=== PATIENT | male | born 1960 | race Caucasian/White ===

== ENCOUNTER 2017-10-16 07:22 | Day surgery (SDC) | payer OTHER ==
[~2017-10-16] VITALS: Ht 180.3 cm; Wt 127.0 kg
[~2017-10-16 07:22] MED LIST: KEFLEX500 MG PO
--- NOTE | 2017-10-16 09:15 | NUR ---
10/16/17 0915 Dl Cohen PT APPEARS AWAKE ON ENTRY TO PACU. ORIENTED TO TIME AND SITUATION. DENIES NAUSEA OR PAIN.
--- NOTE | 2017-10-26 14:11 | OR ---
[facility] [address] [place], [place] [address] Signed DATE OF OPERATION: 10/16/2017 SURGEON: Adwoa Blanca MD PREOPERATIVE DIAGNOSIS: Colon screening. POSTOPERATIVE DIAGNOSIS: Polyps x3. PROCEDURE: Total colonoscopy to cecum with snare polypectomy x2 and cold morcellation polypectomy x1. ANESTHESIA: Intravenous sedation, fentanyl 100 mcg, Versed 5 mg. INDICATION: This 56-year-old white man is a patient of Dr. Smith and is here for colon screening. He has no family history of colon cancer and he has had no symptoms of bleeding, diarrhea, or constipation. He understands well the risks of bleeding, infection, and perforation related to colonoscopy and wished to proceed. FINDINGS: The prep was adequate. Complete colonoscopy was undertaken to the cecum. The cecum had an inflammatory appearance minimally so and biopsies were obtained. There was no sign of polyp there. There were 2 polyps across from each other at 90 cm, one excised with cold morcellation technique and the other cold snare polypectomy technique. Another polyp was noted in the rectosigmoid and excised with hot snare polypectomy technique. The remaining colon was normal. DESCRIPTION OF PROCEDURE: The patient was brought to the endoscopy suite and placed in lateral decubitus position, given intravenous sedation to the point of slurred speech and nystagmus. Digital rectal examination was normal. An Olympus video colonoscope was passed in the rectum and manipulated throughout the colon, ultimately intubating the cecum itself. Irrigation in the cecum of some gelatinous-type stool showed some orange to red type material and was uncertain if this was blood. I saw no sign of mucosal lesion of the cecum itself. However, biopsies were Electronically Signed By: ADWOA BLANCA MD 10/26/17 1411 PATIENT NAME: AYAN PEARSON OPERATIVE REPORT DATE OF : 56 REPORT #: [id number] PHYSICIAN: ADWOA BLANCA MD PCP: LUIS DANIEL SMITH DO REPORT IS CONFIDENTIAL AND NOT TO BE RELEASED WITHOUT AUTHORIZATION [facility] [address] [place], [place] [address] Signed obtained on the possibilities represented a cecitis or even a flat polyp, however, unlikely that might be. The scope was then withdrawn from that point and careful examination was undertaken. Approximately 90 cm from the anal verge were 2 small sessile polyps, one was excised with cold morcellation technique, the larger with cold snare technique. Further withdrawal of the scope showed no abnormality until the rectosigmoid, where a small sessile polyp was noted. This was excised with hot snare polypectomy technique without problem. Withdrawal of scope further allowed retroflexed view of the rectum, which was normal. Scope was removed and the patient was taken to recovery room in good condition. CONCLUDING DIAGNOSIS: Three polyps, all excised. PLAN: Recommend repeat colonoscopy in 3 years sooner if symptoms should occur. We will check pathology. If hyperplastic polyps are the underlying histology, he can go longer before repeat of course. He will return to the ongoing care of Dr. Smith otherwise. MD DENISA Saucedo/JOCELYN /[id number] cc: Luis Daniel Smith DO Copies: LUIS DANIEL SMITH DO ~ Electronically Signed By: ADWOA BLANCA MD 10/26/17 1411 PAT[facility] NAME[facility] RE[facility] DATE OF : 56 REPORT #: [id number] PHYSICIAN: ADWOA BLANCA MD PCP: LUIS DANIEL SMITH DO REPORT IS CONFIDENTIAL AND NOT TO BE RELEASED WITHOUT AUTHORIZATION
== END 2017-10-16 09:50 | disposition home or self-care (01) ==
LOC: OPS 07:22 → DS 07:22 → OPS 08:30
PROVIDERS: Surgery
PROC: 0DBE8ZX Excision of Large Intestine, Via Natural or Artificial Opening Endoscopic, Diagnostic (ICD-10-PCS; 2017-10-16)
PROC: 0DBH8ZX Excision of Cecum, Via Natural or Artificial Opening Endoscopic, Diagnostic (ICD-10-PCS; principal; 2017-10-16 08:30)
DX: Z12.11 Encounter for screening for malignant neoplasm of colon (principal); D12.6 Benign neoplasm of colon, unspecified; K63.89 Other specified diseases of intestine; E66.01 Morbid (severe) obesity due to excess calories; Z98.84 Bariatric surgery status; Z68.39 Body mass index [BMI] 39.0-39.9, adult
CPT/HCPCS: 99153; G0500; J2250; J3010; J7120

== ENCOUNTER 2021-10-18 06:20 | Day surgery (SDC) | payer OTHER ==
[~2021-10-18] VITALS: Ht 180.3 cm; Wt 130.5 kg
[2021-10-18] MEDS ORDERED: FLOMAX0.4 MG PO (06:45)
[2021-10-18] MEDS ORDERED: MULTI VITAMIN1 EACH PO (06:46)
--- NOTE | 2021-10-18 08:23 | NUR ---
10/18/21 0823 Mi Galarza 0816- PT ARRIVES TO PACU ALERT AND ORIENTED. PT REPORTS NO PAIN OR NAUSEA. RESP EVEN AND UNLABORED. OXYGEN SAT HIGH 90'S TO 100% ON 3L VIA NC. 0823- OXYGEN TITRATED OFF.
--- NOTE | 2021-10-18 10:11 | NUR ---
PT ALERT, ORIENTED AND SEEMS RELAXED. PTS' SON WILL PICKUP FOLLOWING DC. PT HAS HAD PREVIOUS SCOPES-MANAGED PREP. ALL QUESTIONS ASKED ASWERED. BLESSING GIVEN, WILL FOLLOW NEEDED
--- NOTE | 2021-10-19 16:01 | PATH ---
[facility] [address] [place], [place] [address] Signed SPECIMEN(S): A FLAT COLON BIOPSY AT 35 CM MUCOSAL LESION SPECIMEN(S): B COLON POLYP AT 20 CM SPECIMEN(S): C COLON POLYP AT 15 CM SPECIMEN SOURCE: A. FLAT COLON BIOPSY AT 35 CM MUCOSAL LESION B. COLON POLYP AT 20 CM C. COLON POLYP AT 15 CM CLINICAL HISTORY: Colonoscopy. History of polyps. Postop: Small polyps. FINAL PATHOLOGIC DIAGNOSIS: A. Flat mucosal colon lesion at 35 cm, biopsies: - Early hyperplastic polyp. - Negative for dysplasia. B. Colon polyp at 20 cm, polypectomy: - Hyperplastic polyp. C. Colon polyp at 15 cm, polypectomy: - Hyperplastic polyp. DDF:em:C2NR MICROSCOPIC EXAMINATION: Histologic sections of all submitted blocks are examined by light microscopy. These findings, together with the gross examination, support the pathologic diagnosis. GROSS DESCRIPTION: Three specimens are received in three containers, labeled "RD." A. The specimen, labeled "RD, flat mucosal colon lesion biopsy at 35 cm," is received in formalin and consists of three solo soft tissue fragments that measure 0.1-0.2 cm in greatest dimension. The specimen is entirely submitted in cassette (A1). B. The specimen, labeled "RD, colon polyp at 20 cm," is received in formalin and consists of two solo soft tissue fragments that measure 0.1-0.2 cm in greatest dimension. The specimen is entirely submitted in cassette (B1). C. The specimen, labeled "RD, colon polyp at 15 cm," is received in formalin and consists of two solo soft tissue fragments that measure 0.2 cm in greatest dimension. The specimen is entirely submitted in cassette (C1). PATIENT NAME: AYAN PEARSON PATHOLOGY DATE OF : 56 REPORT #: [id number] PHYSICIAN: JOHNNY PATHOLOGY PCP: OCTAVIA SMITH DO REPORT IS CONFIDENTIAL AND NOT TO BE RELEASED WITHOUT AUTHORIZATION [facility] [address] [place], [place] [address], [place] [address] Signed JS (under the direct supervision of a pathologist) The Gross Description was prepared using a voice recognition system. The report was reviewed for accuracy; however, sound-alike word errors, addition and/or deletions may occur. If there is any question about this report, please contact Client Services. PERFORMING LABORATORY: The technical component was performed by [facility], [address] [place] [address] (Supervisor Forming Department: Joya Larry MD; CLIA# [id number]). Professional interpretation was performed by [facility], [address] [place] [address] (Supervisor Forming Department: Joya Larry MD; CLIA# [id number]). Diagnostician: Jamar Healy DO Pathologist Electronically Signed 10/19/2021 Copies: ~ PATIENT NAME: AYAN PEARSON PATHOLOGY DATE OF : 56 REPORT #: [id number] PHYSICIAN: JOHNNY ABDI PCP: OCTAVIA SMITH DO REPORT IS CONFIDENTIAL AND NOT TO BE RELEASED WITHOUT AUTHORIZATION
--- NOTE | 2021-10-19 18:19 | OR ---
[facility] [address] [place], [place] [address] Signed DATE OF OPERATION: 10/18/2021 SURGEON: Adwoa Blanca MD PREOPERATIVE DIAGNOSIS: History of tubular adenomas x3 2018. POSTOPERATIVE DIAGNOSIS: Small flat possibly hyperplastic polyps of rectosigmoid, sigmoid and left colon. PROCEDURE: Total colonoscopy to cecum with cold morcellation polypectomy x5. ANESTHESIA: Intravenous sedation; fentanyl 100 mcg and Versed 7 mg. INDICATION: This is a 60-year-old white man who is patient Dr. Luis Daniel Smith of [place], [place]. He has a history of polyps, having undergone colonoscopy by me in 2018. At that time, snare polypectomy of tubular adenomas was noted. The patient is currently asymptomatic, having no bleeding, diarrhea or constipation complaints. He is admitted to undergo surveillance colonoscopy. He understand the risks of bleeding, infection, and perforation. FINDINGS: The prep was good. Complete colonoscopy was undertaken to the cecum without question. He had several small flat type polyps, possibly hyperplastic, but possibly adenomatous. All were confined to the left side and rectosigmoid and five in total were excised. DESCRIPTION OF PROCEDURE: The patient was brought to the endoscopy suite and placed in the lateral decubitus position, given intravenous sedation to the point of slurred speech and nystagmus with full cardiopulmonary monitoring. Digital rectal examination was normal. An Olympus video colonoscope was passed in the rectum and manipulated throughout the colon ultimately intubating the cecum itself. The ileocecal valve and appendiceal orifice were well visualized and normal. The scope was carefully withdrawn from that point and irrigation was undertaken as necessary, showing no sign of abnormality until Electronically Signed By: ADWOA BLANCA MD 10/19/21 1819 PATIENT NAME: AYAN PEARSON OPERATIVE REPORT DATE OF : 56 REPORT #: [id number] PHYSICIAN: ADWOA BLANCA MD PCP: LUIS DANIEL SMITH DO REPORT IS CONFIDENTIAL AND NOT TO BE RELEASED WITHOUT AUTHORIZATION [facility] [address] [place], [place] [address] Signed approximately 40 cm from the anal verge. Here two small flat polypoid lesions were noted. Narrow band imaging confirmed these to be abnormal mucosa and although not worrisome. Both were excised with cold morcellation technique. The scope was withdrawn and other similar such lesion was noted at about 35 cm, it too was excised. Careful withdrawal showed two similar such lesions at about 20 cm, both were excised and final similar lesion at 15 cm also excised with cold morcellation technique. Retroflexed view of the rectum was normal. Scope was removed and the patient was taken to the recovery room in good condition. CONCLUDING DIAGNOSIS: Five small flat polyps, uncertain regarding adenomatous or hyperplastic histology. PLAN: Recommend repeat scope in 5 years, sooner if clinically indicated. He will return to the ongoing care of Dr. Smith. MD DENISA Saucedo/JOCELYN /[id number] cc: Lusi Daniel Smith DO Copies: LUIS DANIEL SMITH DO ~ Electronically Signed By: ADWOA BLANCA MD 10/19/21 1819 PATIENT NAME: AYAN PEARSON PROSPER OPERATIVE REPORT DATE OF : 56 REPORT #: [id number] PHYSICIAN: ADWOA BLANCA MD PCP: LUIS DANIEL SMITH DO REPORT IS CONFIDENTIAL AND NOT TO BE RELEASED WITHOUT AUTHORIZATION
== END 2021-10-18 08:45 | disposition home or self-care (01) ==
LOC: OPS 06:20 → DS 06:20 → OPS 07:30
PROVIDERS: ATTEND Surgery
PROC: 0DBE8ZZ Excision of Large Intestine, Via Natural or Artificial Opening Endoscopic (ICD-10-PCS; principal; 2021-10-18 07:30)
DX: K63.5 Polyp of colon (principal); Z86.010 Personal history of colon polyps; Z98.84 Bariatric surgery status
CPT/HCPCS: 99153; G0500; J0690; J2250; J3010; J7121

== ENCOUNTER 2024-03-08 08:21 | Emergency (ER) | payer MEDICARE, OTHER ==
[~2024-03-08 08:21] MED LIST changes: +FLOMAX0.4 MG PO; +MULTI VITAMIN1 EACH PO
[2024-03-08] MEDS ORDERED: CEFTRIAXONE/SODIUM CHLORIDE 1 GM/100 ML PIGGYBACK IV ONE (09:00)
[2024-03-08 13:46] LABS: BASOPHILS 2.1 % (0-2); EOSINOPHILS 0.5 % (0-6); HEMATOCRIT 42.1 % (35.0-50.0); HEMOGLOBIN 13.5 g/dL (12.0-18.0); LYMPHOCYTES 19.3 % (24-44); MCH 31.6 (27-36); MCHC 32.2 g/dl (30-36); MCV 98.2 fl (81-99); MONOCYTES 8.3 % (0-12); NEUTROPHILS 69.8 % (39-80); PLATELET COUNT 320 K/uL (140-440); RBC 4.29 M/ul (4.3-5.7); RDW 15.7 (10.5-15.0)
[2024-03-08 13:50] LABS: ALBUMIN 3.2 g/dL (3.4-5.0); ALBUMIN/GLOBULIN RATIO 0.76 (1.1-2.4); ANION GAP 12.6 (7-21); BUN/CREATININE RATIO 15.78 (6.0-28.6); CALCIUM 9.1 mg/dL (8.5-10.1); CREATININE, SERUM 1.14 mg/dL (0.70-1.30); POTASSIUM 3.6 mmol/L (3.5-5.1); PROTEIN, TOTAL 7.4 g/dL (6.4-8.2)
== END 2024-03-08 09:50 | disposition left against medical advice (07) ==
LOC: ED 08:21
PROVIDERS: Emergency Medicine
DX: L03.113 Cellulitis of right upper limb (principal); I10 Essential (primary) hypertension; I48.91 Unspecified atrial fibrillation
CPT/HCPCS: 36415; 80053; 85025